=== PATIENT | female | born 1950 | race Two or more races ===

== ENCOUNTER 2022-06-22 12:09 | Emergency (ER) | payer OTHER ==
[~2022-06-22] VITALS: Ht 157.5 cm; Wt 71.7 kg
[2022-06-22] MEDS ORDERED: KETO10TA2 PO (14:38)
[2022-06-22] MEDS ORDERED: VALTREX1000 MG PO (14:38)
== END 2022-06-22 14:43 | disposition home or self-care (01) ==
LOC: ER 12:09
DX: B02.9 Zoster without complications (principal)